=== PATIENT | female | born 1985 | race Two or more races ===

== ENCOUNTER 2021-09-15 20:21 | Emergency (ER) | payer OTHER ==
[~2021-09-15] VITALS: Ht 165.1 cm; Wt 111.1 kg
== END 2021-09-16 00:33 | disposition home or self-care (01) ==
LOC: ER 20:21
DX: U07.1 COVID-19 (principal); B34.9 Viral infection, unspecified

== ENCOUNTER 2021-10-25 08:38 | Outpatient (CLI) | payer OTHER | END 2021-10-25 08:39 | disposition home or self-care (01) | LOC: LAB 08:38 | DX: R16.0 Hepatomegaly, not elsewhere classified (principal) ==